=== PATIENT | male | born 1960 | race Two or more races ===

== ENCOUNTER 2021-09-07 10:32 | Emergency (ER) | payer MEDICAID, OTHER ==
[~2021-09-07] VITALS: Ht 167.6 cm; Wt 81.6 kg
[2021-09-07 10:33] VITALS: BP 183/93
[2021-09-07] MEDS ORDERED: TETRACAINE HCL 0.5% OPTH(EYE) SOLN 4ML LEFTEYE ONE (11:45)
[2021-09-07] MEDS ORDERED: FLUORESCEIN SOD OPTH TEST STRIP LEFTEYE ONE (11:45)
[2021-09-07] MEDS ORDERED: CIP03OS LEFTEYE (11:58)
== END 2021-09-07 12:14 | disposition home or self-care (01) ==
LOC: ER 10:32
DX: S05.02XA Injury of conjunctiva and corneal abrasion without foreign body, left eye, initial encounter (principal); H10.9 Unspecified conjunctivitis; G89.29 Other chronic pain; M54.9 Dorsalgia, unspecified; Z79.2 Long term (current) use of antibiotics; X58.XXXA Exposure to other specified factors, initial encounter; Y93.89 Activity, other specified; Y92.89 Other specified places as the place of occurrence of the external cause; Y99.8 Other external cause status